=== PATIENT | female | born 1970 | race African-American/Black ===

== ENCOUNTER 2022-11-03 18:58 | Emergency (ER) | payer OTHER, SELFPAY ==
[2022-11-03] MEDS ORDERED: Ondansetron PF 4 MG/2 ML Vial ONE (20:49)
[2022-11-03] MEDS ORDERED: Morphine 4 MG/ML VIAL ONE ×3 (20:49→23:58)
[2022-11-03 20:50] LABS: #Eosinphils 0.3 thou/uL (0.0-0.7); #Monocytes 0.6 thou/uL (0.11-0.59); #Neutrophils 5.5 thou/uL (1.40-6.50); %Basophils 0.3 % (0.0-1.0); %Eosinophils 3.6 % (0.0-10.0); %Lymphocytes 25.9 % (21.0-51.0); %Monocytes 6.6 % (0.0-10.0); %Neutrophils 63.4 % (42.0-75.0); Hematocrit 40.7 % (36.0-47.0); Hemoglobin 12.5 g/dL (12.0-16.0); Mean Corpuscular HGB CONC 30.7 g/dL (32.0-36.0); Mean Corpuscular Hemoglobin 25.5 pg (27.0-31.0); Mean Corpuscular Volume 83.1 fl (78.0-98.0); Mean Platelet Volume 10.5 fL (7.4-10.4); Platelet Count 291 10x3/uL (130-400); RBC Distribution Width 16.5 % (11.5-14.5); White Blood Cell (WBC) Count 8.7 10x3/uL (4.8-10.8)
[2022-11-03] MEDS ORDERED: VANCOMYCIN 2 GRAM/500 ML BAG 2 GM in Premix Bag 1 BAG IVPB SCH (21:00)
[2022-11-03] MEDS ORDERED: Clindamycin 150 MG CAP PO SCH (21:00)
[2022-11-03 21:16] LABS: ALT (SGPT) 34 U/L (8-55); AST (SGOT) 35 U/L (5-34); Albumin 3.9 g/dL (3.5-5.0); Alkaline Phosphatase 138 U/L (40-110); Anion Gap 8 mmol/L (10-20); BUN (Urea Nitrogen) 16 mg/dL (7.0-18.7); Bilirubin, Total 0.3 mg/dL (0.2-1.2); Calc. Creatinine Clearance 0 mL/min (70-130); Calcium 9.8 mg/dL (7.8-10.44); Carbon Dioxide 30 mmol/L (22-29); Chloride 103 mmol/L (98-107); Estimated GFR 73; Globulin 4.4 g/dL (2.4-3.5); Glucose 85 mg/dL (70-105); Lipase 26 U/L (8-78); Potassium 4.5 mmol/L (3.5-5.1); Protein, Total 8.3 g/dL (6.0-8.3); Sodium 136 mmol/L (136-145)
[2022-11-03 21:17] LABS: Troponin I Less than 0.010 ng/mL (< 0.028)
[2022-11-03] MEDS ORDERED: Ketorolac Tromethamine 30 MG/ML VIAL ONE (21:50)
[2022-11-03] MEDS ORDERED: Furosemide 40 MG/4 ML VIAL ONE (22:04)
== END 2022-11-04 00:20 | disposition home or self-care (01) ==
LOC: ERS 18:58
DX: L03.116 Cellulitis of left lower limb (principal); I11.0 Hypertensive heart disease with heart failure; I50.9 Heart failure, unspecified; E11.9 Type 2 diabetes mellitus without complications; Z79.84 Long term (current) use of oral hypoglycemic drugs
CPT/HCPCS: 36415; 71045; 80053; 83605; 83690; 83735; 84484; 85025; 87040; 93005; 93970; 96365; 96366; 96375; 96376; J1885; J1940; J2270; J2405; J3370